=== PATIENT | female | born 1995 | race American Indian/Alaskan Native ===

== ENCOUNTER → 2018-02-03 14:55 | Emergency (ER) | payer SELFPAY | END | disposition left against medical advice (07) | LOC: ED 14:55 | DX: M54.9 Dorsalgia, unspecified (principal); Z53.21 Procedure and treatment not carried out due to patient leaving prior to being seen by health care provider ==

== ENCOUNTER 2018-02-08 13:14 | Emergency (ER) | payer SELFPAY ==
[2018-02-08 13:22] VITALS: BP 123/88
== END 2018-02-08 19:49 | disposition left against medical advice (07) ==
LOC: ED 13:14
DX: R11.0 Nausea (principal); Z53.21 Procedure and treatment not carried out due to patient leaving prior to being seen by health care provider